=== PATIENT | female | born 1990 | race Caucasian/White ===

== ENCOUNTER 2024-10-04 08:45 | Emergency (ER) | payer MEDICAID, SELFPAY ==
[2024-10-04 08:49] VITALS: BP 130/80; PULSE 86; RESP 19; TEMP 37; O2SAT 99; BMI 65.0
--- NOTE | 2024-10-04 09:07 | XR_ITS ---
Examination: CT brain head without contrast. 2-D sagittal coronal reconstructions Date and time of exam:October 04, 2024 0914 hours Comparison July 13, 2011 INDICATIONS: Onset headaches with blurred vision today focal neurologic deficit CTDI: vol (mGy):51.6 DLP: (mGycm):1064 Technique: Multiple CT axial sections of the brain have been obtained, 5 mm slice thickness. Contrast has not been administered. 2-D sagittal, coronal reconstructions have been obtained Low dose protocols were performed. One or more of the following dose reduction techniques were used; automated exposure control, adjustment of the mA and/or KV according to patient size, use of iterative reconstruction technique. Findings: No significant ventricular enlargement. Intra-axial or extra-axial hemorrhage density is not seen. No mass effect or midline shift Basal cisterns are not remarkable. Fourth ventricle is midline. Cranial vault intact. Impression: Negative for acute hemorrhage, mass effect or midline shift As clinically warranted, if the symptoms persist, consider brain MRI follow-up
[2024-10-04 10:26] LABS: Basophils % (Auto) 0 % (0-2.5); Eosinophils # (Auto) 0.3 Thou/mm3 (0.0-0.5); Eosinophils % (Auto) 5 % (0-10); Hematocrit 40.5 % (36.0-46.0); Immature Granulocytes % (Auto) 0 % (0-0); Lymphocytes # (Auto) 1.5 Thou/mm3 (1.0-4.8); Lymphocytes % (Auto) 28 % (10-50); Mean Corpuscular HGB Conc 32.1 g/dl (31.0-37.0); Mean Corpuscular Hemoglobin 28.1 pg (25.0-35.0); Mean Corpuscular Volume 88 fL (80-100); Monocytes # (Auto) 0.4 Thou/mm3 (0.0-0.8); Monocytes % (Auto) 7 % (0-12); Neutrophils # (Auto) 3.1 Thou/mm3 (1.8-7.7); Neutrophils % (Auto) 59 % (37-80); Nucleated Red Blood Cell % 0 /100 WBC (0); Platelet Count 146 Thou/mm3 (140-440); Red Blood Count 4.63 Miln/mm3 (4.00-5.20); White Blood Count 5.2 Thou/mm3 (3.6-11.0)
[2024-10-04 10:47] LABS: Alanine Aminotransferase 40 U/L (10-49); Albumin, Serum 4.2 gm/dL (3.5-5.0); Albumin/Globulin Ratio 1.4 (1.2-2.2); Alkaline Phosphatase 98 U/L (46-116); Anion Gap 5 (7-16); Aspartate Amino Transferase 27 U/L (0-34); BUN/Creatinine Ratio 8 Ratio (12-20); Bilirubin,Total 1.6 mg/dL (0.3-1.2); Blood Urea Nitrogen < 5 mg/dL (9-23); Calcium 9.8 mg/dL (8.3-10.6); Calcium (Corrected) 9.8 mg/dL (8.5-10.1); Carbon Dioxide 25.6 mMol/L (20.0-31.0); Chloride 108 mMol/L (98-107); Creatinine (Component) 0.6 mg/dL (0.6-1.3); Estimated Creatinine Clearance 213.9 mL/min (>60); Globulin 2.9 gm/dL (2.3-3.5); Glucose 95 mg/dL (74-106); HCG,Qualitative Serum Positive; Osmolality,Calculated 274 (275-295); Potassium 3.8 mMol/L (3.4-5.1); Sodium 139 mMol/L (136-145); Total Protein 7.1 gm/dL (5.7-8.2); eGFR > 60 See Note
--- NOTE | 2024-10-04 11:20 | XR_ITS ---
Examination: OB Transvaginal ultrasound of the pelvis, complete Technique: Transvaginal sonographic images pelvis performed using wolfe scale imaging Exam date and time: October 04, 2024 1150 hours INDICATIONS: Onset pelvic pain dizziness headaches beginning yesterday FINDINGS: Uterus 14.7 x 8.5 x 8.1 cm Very poor visualization of uterus and ovaries IMPRESSION: Very poor visualization of uterus and ovaries, please see the transabdominal study.
--- NOTE | 2024-10-04 12:04 | XR_ITS ---
Examination: Complete OB ultrasound, less than 14 weeks, transabdominal Date and time of exam: October 04, 2024 1202 hours INDICATIONS: Dizziness headaches pelvic pain today Technique: Obstetrical ultrasound images less than 14 weeks performed via transabdominal imaging Findings: A normal shaped single intrauterine gestation is present in the uterus. pole 1.9 cm corresponds to 8 weeks 3 days gestational age Ultrasonographic survey of visible and placental structures unremarkable. Amniotic fluid volume appears appropriate for this estimated gestational age. Ovaries obscured by bowel gas IMPRESSION: Viable intrauterine gestation 8 weeks 3 days Cardiac motion 167 BPM.
[2024-10-04 13:18] LABS: Beta HCG,Quantitative 178442 mIU/mL (<5.0)
--- NOTE | 2024-10-04 13:37 | PD.EDHA ---
ED Headache RME/HPI General Chief Complaint: Headache Stated Complaint: headache with episodes of blurred vision per pt Time Seen by Provider: 10/04/24 08:48 Arrival date/time: 10/04/24 08:45 34-year-old female with medical history significant for obesity requiring gastric sleeve last month. Patient reports that she is concerned that she has a headache and maybe her electrolytes or something else may be off secondary to the gastric sleeve. Patient reports no fever nausea or vomiting no dizziness no weakness no chest pain or shortness of breath Limitations: no limitations Related Data Previous Rx's ?Medication ?Instructions ?Recorded albuterol sulfate 90 mcg/actuation See Rx Instructions inhalation 11/22/19 aerosol inhaler .COMPLEX PRN wheezing / cough / shortness of breath #6.7 grams benzonatate 100 mg capsule See Rx Instructions .Route 11/22/19 (Tessalon Perles) .COMPLEX cough #30 caps inhalational spacing device #1 ea 11/22/19 (Aerochamber MV spacer) ipratropium bromide 21 mcg (0.03 See Rx Instructions .Route 11/22/19 %) nasal spray .COMPLEX #30 mL prednisone 20 mg tablet See Rx Instructions PO QAM #9 tabs 11/22/19 levofloxacin 750 mg tablet 750 mg PO QDAY #5 tabs 05/31/22 Allergies Allergy/AdvReac Type Severity Reaction Status Date / Time Penicillins Allergy Intermediate THROAT Verified 10/04/24 08:45 SWELLING, TURNS RED Review of Systems Review of Systems Systems Reviewed: All systems reviewed, normal except as documented Constitutional Constitutional: Reports system reviewed and no additional complaints, except as documented, Denies fever(s) and Reports headache(s) Eyes Eyes: Reports system reviewed and no additional complaints, except as documented and Denies blurry vision ENT Ears, Nose, Mouth, and Throat: Reports system reviewed and no additional complaints, except as documented, Reports headache(s), Denies nasal congestion and Denies nasal discharge Cardiovascular Cardiovascular: Reports system reviewed and no additional complaints, except as documented, Denies chest pain and Denies dyspnea Respiratory Respiratory: Reports system reviewed and no additional complaints, except as documented, Denies chest congestion, Denies cough and Denies dyspnea Gastrointestinal Gastrointestinal: Reports system reviewed and no additional complaints, except as documented and Denies abdominal pain Integumentary/Breasts Skin/Breast: Reports system reviewed and no additional complaints, except as documented and Denies rash Neurologic Neurologic: Reports system reviewed and no additional complaints, except as documented, Reports as per HPI and Reports headache(s) Past Medical History Past Medical History CARDIAC: Positive Cellulitis; Negative Cardiac Disorders or Congestive Heart Failure RESPIRATORY: Negative Chronic Obstructive Pulmonary Disease (COPD) or Asthma GENITOURINARY: Negative Renal Disease ENDOCRINE: Negative Diabetes Mellitus Type 1 or Diabetes Mellitus Type 2 HEMATOLOGIC: Negative Sickle Cell Disease OTHER HISTORY: Negative Blood Transfusions Surgical History SURGICAL: Positive Tonsillectomy and Section Social History SMOKING STATUS: Never smoker ED Exam General Limitations: Present no limitations General appearance: Present alert and in no apparent distress Head Head exam: Present atraumatic, normocephalic and normal inspection Eye Eye exam: Present normal appearance, PERRL and EOMI; Absent conjunctival injection ENT ENT exam: Present normal exam, normal oropharynx and mucous membranes moist Neck Neck exam: Present normal inspection, full ROM and trachea midline Chest Chest inspection: Present normal inspection and symmetric chest wall rise Respiratory Respiratory exam: Present normal lung sounds bilaterally Cardiovascular Cardiovascular exam: Present regular rate, normal rhythm and normal heart sounds Abdominal Exam Abdominal exam: Present soft and normal bowel sounds Extremities Exam Extremities exam: Present normal inspection and full ROM Back Exam Back exam: Present normal inspection and full ROM Neurological Exam Neurological exam: Present alert, oriented X3, CN II-XII intact, normal gait and reflexes normal; Absent motor sensory deficit Psychiatric Psychiatric exam: Present normal affect and normal mood Skin Skin exam: Present warm, dry, intact and normal color Course Quality Measures none Orders Category Date Time Status CT head/brain wo con Stat Exams 10/04/24 09:07 Completed US OB <= 14 weeks fetus Stat Exams 10/04/24 12:04 Completed US OB transvaginal Stat Exams 10/04/24 11:20 Completed Beta HCG,Quantitative Stat Lab 10/04/24 09:50 Completed CBC Stat Lab 10/04/24 09:50 Completed CMP [Comprehensive Metabolic Panel] Stat Lab 10/04/24 09:50 Completed HCG,Qualitative Serum Stat Lab 10/04/24 09:50 Completed Vital Signs Vital signs: Vital Signs Temperature 98.6 F 10/04/24 08:49 Pulse Rate 86 10/04/24 08:49 Respiratory Rate 19 10/04/24 08:49 Blood Pressure 130/80 10/04/24 08:49 Pulse Oximetry (%) 99 10/04/24 08:49 Oxygen Delivery Method Room Air 10/04/24 08:49 O2 saturation 99% room air within normal limits Headache MDM Narrative MDM Narrative:: 34-year-old female with medical history significant for obesity requiring gastric sleeve last month. Patient reports that she is concerned that she has a headache and maybe her electrolytes or something else may be off secondary to the gastric sleeve. Patient reports no fever nausea or vomiting no dizziness no weakness no chest pain or shortness of breath Lab work obtained incidentally patient was found to be per lab work hCG quantitative level as well as ultrasound obtained Ultrasound consistent with viable 8-week 3-day with reassuring quantitative level Findings were explained to the patient patient was quite shocked by the findings Patient discharged home in no distress to follow-up with primary care doctor in the next 24 to 48 hours and for any worsening symptoms to return to the ER immediately Patient data External records reviewed:: [facility] previous records Clinical information provided by:: patient Social determinants that could affect healthcare access:: none Patient has the following chronic illnesses:: None How is presenting disease/condition affected by chronic disease/condition?: no chronic disease Evaluation data The following diagnostics were reviewed and interpreted by me:: lab results and radiology exam(s) Lab and/or radiology exams considered but not ordered:: Labs and radiology obtained Interpretation Summary: Reviewed by me Medications / Prescriptions Medications or Prescriptions considered but not ordered:: Given Medication administrations:: Given Consultations Consultation(s) initiated? (list below): No Diagnosis Differential diagnosis headache: migraine, tension headache, subarachnoid hemorrhage and other Most likely diagnosis given after review of the tests above:: Headache incidental finding Admission Indicated Admission indicated?: not indicated Admission Request Was there a request for admission?: No Disposition Plan Disposition Plan: Discharge Discharge Attestation Discharge Attestation: The patient and all family members were given an opportunity to ask questions and understood the discharge instructions. Discharge instructions specifically effects, indications for sooner follow up or return to the emergency department, and the expected course of current diagnosis. Patient condition: Stable Discharge Plan Plan Patient Disposition: HOME (Self Care) Disposition Comment: Stable Prescriptions/Referrals Prescriptions/Med Rec: No Action (DME) Aerochamber MV spacer See Dose Instructions .ROUTE .MEDSUPPLY Qty: 1 0RF Dose Instruction: As directed Rx Instructions: As directed albuterol sulfate 90 mcg/actuation HFA aerosol inhaler See Rx Instructions INH .COMPLEX PRN (Reason: wheezing / cough / shortness of breath) Qty: 6.7 0RF Rx Instructions: INH PRN; 1-2 puffs Q4-6 hours prn. administer with spacer ipratropium bromide 0.03 % spray,non-aerosol See Rx Instructions .Route .COMPLEX Qty: 30 0RF Rx Instructions: 2 sprays to each nostril q6-8 hours prn congestion; wait 30 seconds between sprays benzonatate [Tessalon Perles] 100 mg capsule See Rx Instructions .Route .COMPLEX Qty: 30 0RF Rx Instructions: 1-2 cap(s) PO Q8 hours prn cough prednisone 20 mg tablet See Rx Instructions PO QAM Qty: 9 0RF Rx Instructions: PO QAM; Take 40mg (2 tabs) PO QAM x 3 days, then 20mg (1 tab) PO QAM x 3 days levofloxacin 750 mg tablet 750 mg PO QDAY Qty: 5 0RF Rx Instructions: start on 06/01/22 Referrals: Lyndsey Sharpe FNP [Primary Care Provider] - In 1 week Problem List Clinical Impression: Headache, Incidental Patient/Caregiver Discharge Instructions Education Materials: Self-Care for Headaches Additional Instructions: Please follow-up with [facility] as soon as possible for worsening symptoms return immediately Print Language: Samoan Stand Alone Forms: Radha Award Info., Patient Portal Info Letter Attestation Attestation The patient was seen by the midlevel practitioner. I, the co-signing physician, was present during the entire ER visit. While I did not physically examine the patient, I was available for consultation as needed.
== END 2024-10-04 13:40 | disposition home or self-care (01) ==
PROVIDERS: Nurse Practitioner Primary Care; Emergency Provider Emergency Medicine; PCP Nurse Practitioner
DX: R51.9 Headache, unspecified (principal); Z33.1 Pregnant state, incidental
CPT/HCPCS: 36415; 70450; 76801; 76817; 80053; 84702; 84703; 85025; 99284

== ENCOUNTER 2024-11-08 15:03 | Emergency (ER) | payer MEDICAID, SELFPAY ==
[2024-11-08 15:31] VITALS: BP 114/77; PULSE 86; RESP 18; TEMP 36.9; O2SAT 95; BMI 60.2
--- NOTE | 2024-11-08 16:07 | PD.EDADULT ---
ED General RME/HPI General Chief complaint: General Adult/Misc Complain Stated complaint: LOW B/P, + Time Seen by Provider: 11/08/24 15:05 Arrival date/time: 11/08/24 15:03 34-year-old female presents to the emergency department today complains of cough, congestion, runny nose and bodyaches patient reports being approximately 14 weeks Limitations: no limitations Related Data Previous Rx's ?Medication ?Instructions ?Recorded albuterol sulfate 90 mcg/actuation See Rx Instructions inhalation 11/22/19 aerosol inhaler .COMPLEX PRN wheezing / cough / shortness of breath #6.7 grams benzonatate 100 mg capsule See Rx Instructions .Route 11/22/19 (Tessalon Perles) .COMPLEX cough #30 caps inhalational spacing device #1 ea 11/22/19 (Aerochamber MV spacer) ipratropium bromide 21 mcg (0.03 See Rx Instructions .Route 11/22/19 %) nasal spray .COMPLEX #30 mL prednisone 20 mg tablet See Rx Instructions PO QAM #9 tabs 11/22/19 levofloxacin 750 mg tablet 750 mg PO QDAY #5 tabs 05/31/22 acetaminophen 500 mg capsule 1,000 mg (2 x 500 mg) PO Q8HR PRN 11/08/24 pain #30 caps fluticasone propionate 50 2 spray intranasal QDAY PRN 11/08/24 mcg/actuation nasal allergy symptoms #16 grams spray,suspension (Flonase Allergy Relief) Allergies Allergy/AdvReac Type Severity Reaction Status Date / Time Penicillins Allergy Severe THROAT Verified 11/08/24 15:07 SWELLING, TURNS RED Review of Systems Review of Systems Systems Reviewed: All systems reviewed, normal except as documented Constitutional Constitutional: Reports system reviewed and no additional complaints, except as documented, Denies fever(s) and Denies headache(s) Eyes Eyes: Reports system reviewed and no additional complaints, except as documented and Denies blurry vision ENT Ears, Nose, Mouth, and Throat: Reports system reviewed and no additional complaints, except as documented, Denies headache(s), Reports nasal congestion and Reports nasal discharge Cardiovascular Cardiovascular: Reports system reviewed and no additional complaints, except as documented, Denies chest pain and Denies dyspnea Respiratory Respiratory: Reports system reviewed and no additional complaints, except as documented, Reports chest congestion, Reports cough and Denies dyspnea Gastrointestinal Gastrointestinal: Reports system reviewed and no additional complaints, except as documented and Denies abdominal pain Integumentary/Breasts Skin/Breast: Reports system reviewed and no additional complaints, except as documented and Denies rash Neurologic Neurologic: Reports system reviewed and no additional complaints, except as documented, Reports as per HPI and Denies headache(s) Past Medical History Past Medical History CARDIAC: Positive Cellulitis; Negative Cardiac Disorders or Congestive Heart Failure RESPIRATORY: Negative Chronic Obstructive Pulmonary Disease (COPD) or Asthma GENITOURINARY: Negative Renal Disease ENDOCRINE: Negative Diabetes Mellitus Type 1 or Diabetes Mellitus Type 2 HEMATOLOGIC: Negative Sickle Cell Disease OTHER HISTORY: Negative Blood Transfusions Surgical History SURGICAL: Positive Tonsillectomy and Section Social History SMOKING STATUS: Never smoker ED Exam General Limitations: Present no limitations General appearance: Present alert and in no apparent distress Head Head exam: Present atraumatic, normocephalic and normal inspection Eye Eye exam: Present normal appearance, PERRL and EOMI; Absent conjunctival injection ENT ENT exam: Present normal exam, normal oropharynx and mucous membranes moist Neck Neck exam: Present normal inspection, full ROM and trachea midline Chest Chest inspection: Present normal inspection and symmetric chest wall rise; Absent tenderness Respiratory Respiratory exam: Present normal lung sounds bilaterally; Absent respiratory distress, wheezes, stridor or accessory muscle use Cardiovascular Cardiovascular exam: Present regular rate, normal rhythm and normal heart sounds Abdominal Exam Abdominal exam: Present soft and normal bowel sounds; Absent distention, tenderness, guarding, rebound or rigidity Extremities Exam Extremities exam: Present normal inspection and full ROM Back Exam Back exam: Present normal inspection and full ROM Neurological Exam Neurological exam: Present alert, oriented X3 and CN II-XII intact Psychiatric Psychiatric exam: Present normal affect and normal mood Skin Skin exam: Present warm, dry, intact and normal color Course Quality Measures none Orders Category Date Time Status Bedside COVID-19 Antigen Test NOW Care 11/08/24 15:36 Active Bedside Influenza A&B Antigen Test NOW Care 11/08/24 15:36 Completed Vital Signs Vital signs: Vital Signs Temperature 98.5 F 11/08/24 15:31 Pulse Rate 86 11/08/24 15:31 Respiratory Rate 18 11/08/24 15:31 Blood Pressure 114/77 11/08/24 15:31 Pulse Oximetry (%) 95 11/08/24 15:31 Oxygen Delivery Method Room Air 11/08/24 15:31 O2 saturation 95% room air within normal MDM Patient data External records reviewed:: [facility] previous records Clinical information provided by:: patient Social determinants that could affect healthcare access:: none Patient has the following chronic illnesses:: She history How is presenting disease/condition affected by chronic disease/condition?: uneffected by Evaluation data The following diagnostics were reviewed and interpreted by me:: lab results Lab and/or radiology exams considered but not ordered:: Labs obtained Interpretation Summary: Reviewed by me Medications Medications considered but not ordered:: Given Medication administrations:: Given Consultations Consultation(s) initiated? (list below): No Diagnosis Differential Diagnosis ED Complaint MDM: URI, viral illness, COVID-19, pneumonia Most likely diagnosis given after review of the tests above:: Viral illness Admission Indicated Admission indicated?: not indicated Explain why admission is indicated or not indicated:: No criteria Admission Request Was there a request for admission?: No Disposition Plan Disposition Plan: Discharge Discharge Attestation Discharge Attestation: The patient and all family members were given an opportunity to ask questions and understood the discharge instructions. Discharge instructions specifically effects, indications for sooner follow up or return to the emergency department, and the expected course of current diagnosis. Patient condition: Stable Medical Decision Making MDM Narrative MDM Narrative: 34-year-old female presents to the emergency department today complains of cough, congestion, runny nose and bodyaches patient reports being approximately 14 weeks On exam patient does not appear ill or toxic patient's not appear in acute distress Patient checked for flu and COVID both of which are negative Patient ports that she has had no fevers Patient reports her primary complaint is a runny nose and congestion Patient discharged home in no distress to follow-up with primary care doctor in the next 24 to 48 hours and for any worsening symptoms to return to the ER immediately Differential Diagnosis Differential Diagnosis: URI, viral illness, COVID-19, pneumonia Medical Records Medical records reviewed: Yes I reviewed the patient's medical records. Lab Data Lab results reviewed: Yes I reviewed the patient's lab results. Discharge Plan Plan Patient Disposition: HOME (Self Care) Disposition Comment: Stable Prescriptions/Referrals Prescriptions/Med Rec: New acetaminophen 500 mg capsule 1,000 mg PO Q8HR PRN (Reason: pain) Qty: 30 0RF fluticasone propionate [Flonase Allergy Relief] 50 mcg/actuation spray,suspension 2 spray INTRANASAL QDAY PRN (Reason: allergy symptoms) Qty: 16 0RF Rx Instructions: administer into each nostril No Action (DME) Aerochamber MV spacer See Dose Instructions .ROUTE .MEDSUPPLY Qty: 1 0RF Dose Instruction: As directed Rx Instructions: As directed albuterol sulfate 90 mcg/actuation HFA aerosol inhaler See Rx Instructions INH .COMPLEX PRN (Reason: wheezing / cough / shortness of breath) Qty: 6.7 0RF Rx Instructions: INH PRN; 1-2 puffs Q4-6 hours prn. administer with spacer ipratropium bromide 0.03 % spray,non-aerosol See Rx Instructions .Route .COMPLEX Qty: 30 0RF Rx Instructions: 2 sprays to each nostril q6-8 hours prn congestion; wait 30 seconds between sprays benzonatate [Tessalon Perles] 100 mg capsule See Rx Instructions .Route .COMPLEX Qty: 30 0RF Rx Instructions: 1-2 cap(s) PO Q8 hours prn cough prednisone 20 mg tablet See Rx Instructions PO QAM Qty: 9 0RF Rx Instructions: PO QAM; Take 40mg (2 tabs) PO QAM x 3 days, then 20mg (1 tab) PO QAM x 3 days levofloxacin 750 mg tablet 750 mg PO QDAY Qty: 5 0RF Rx Instructions: start on 06/01/22 Problem List Clinical Impression: URI (upper respiratory infection) Patient/Caregiver Discharge Instructions Education Materials: ED URI, Viral, No Abx (Adult) Additional Instructions: Please follow up with your primary care doctor in the next 24-48hrs for any worsening symptoms return here immediately Print Language: Namibian Stand Alone Forms: Radha Award Info., Patient Portal Info Letter PA/[employer]ADI[employer] CONVERTER UTILITY OPERATOR Supervising Physician PA/BUTADIENE CONVERTER UTILITY OPERATOR Supervising Physician: Dr Turner
== END 2024-11-08 16:12 | disposition home or self-care (01) ==
LOC: SERX 16:29
PROVIDERS: Emergency Provider Emergency Medicine
DX: O99.512 Diseases of the respiratory system complicating pregnancy, second trimester (principal); J06.9 Acute upper respiratory infection, unspecified; Z3A.14 14 weeks gestation of pregnancy
CPT/HCPCS: 87400; 87811; 99283

== ENCOUNTER 2024-11-27 23:46 | Emergency (ER) | payer MEDICAID, SELFPAY ==
[2024-11-27 23:46] VITALS: BMI 60.2
[2024-11-28 00:11] VITALS: BP 135/89; PULSE 77; RESP 16; TEMP 37; O2SAT 99
--- NOTE | 2024-11-28 00:13 | EDNOTE_ITS ---
Lower Extremity Injury RME/HPI General Chief Complaint: Extremity Injury, Lower Stated Complaint: LT KNEE PAIN Time Seen by Provider: 11/27/24 23:50 Source: patient, RN notes reviewed and old records reviewed Arrival date/time: 11/27/24 23:46 Mode of arrival: wheelchair Limitations: no limitations RME / HPI RME / HPI Narrative: 34yof presents to ED for left knee pain x2 days. No preceding injury or fall. Patient reports mild swelling, no rash or redness. No numbness/tingling reported. Patient has taken tylenol with some relief. Related Data Previous Rx's ?Medication ?Instructions ?Recorded albuterol sulfate 90 mcg/actuation See Rx Instructions inhalation 11/22/19 aerosol inhaler .COMPLEX PRN wheezing / cough / shortness of breath #6.7 grams benzonatate 100 mg capsule See Rx Instructions .Route 11/22/19 (Tessalon Perles) .COMPLEX cough #30 caps inhalational spacing device #1 ea 11/22/19 (Aerochamber MV spacer) ipratropium bromide 21 mcg (0.03 See Rx Instructions .Route 11/22/19 %) nasal spray .COMPLEX #30 mL prednisone 20 mg tablet See Rx Instructions PO QAM #9 tabs 11/22/19 levofloxacin 750 mg tablet 750 mg PO QDAY #5 tabs 05/31/22 acetaminophen 500 mg capsule 1,000 mg (2 x 500 mg) PO Q8HR PRN 11/08/24 pain #30 caps fluticasone propionate 50 2 spray intranasal QDAY PRN 11/08/24 mcg/actuation nasal allergy symptoms #16 grams spray,suspension (Flonase Allergy Relief) acetaminophen 650 mg 650 mg PO Q8H PRN pain #30 tabs 11/28/24 tablet,extended release (Tylenol 8 Hour) diclofenac sodium 1 % topical gel 2 g topical QID PRN pain #100 grams 11/28/24 (Voltaren Arthritis Pain) lidocaine 5 % topical patch 1 patch topical QDAY #15 ea 11/28/24 Allergies Allergy/AdvReac Type Severity Reaction Status Date / Time Penicillins Allergy Severe THROAT Verified 11/08/24 15:07 SWELLING, TURNS RED Review of Systems Musculoskeletal Musculoskeletal: Reports arthralgias, Denies deformity, Reports joint swelling, Denies limited range of motion, Denies numbness and Denies tingling Neurologic Neurologic: Denies numbness and Denies tingling Past Medical History Past Medical History GASTROINTESTINAL: Positive Obesity Surgical History SURGICAL: Positive Section OTHER SURGICAL HX: Gastric sleeve Social History SMOKING STATUS: Never smoker SUBSTANCE USE: does not use ALCOHOL: Never ED Exam General Limitations: Present no limitations General appearance: Present alert, in no apparent distress and other (Morbidly obese) Head Head exam: Present atraumatic and normocephalic Eye Eye exam: Present normal appearance, PERRL and EOMI ENT ENT exam: Present normal exam and mucous membranes moist Neck Neck exam: Present normal inspection and full ROM Chest Chest inspection: Present normal inspection and symmetric chest wall rise Respiratory Respiratory exam: Present normal lung sounds bilaterally; Absent respiratory distress Cardiovascular Cardiovascular exam: Present regular rate and normal rhythm Extremities Exam Extremities exam: Present other (Mild tenderness/swelling to left anterior knee. FROM. DP pulses and sensation intact) Neurological Exam Neurological exam: Present alert and oriented X3 Psychiatric Psychiatric exam: Present normal affect and normal mood Skin Skin exam: Present warm, dry, intact and normal color Course Quality Measures none Orders Category Date Time Status murray wrap [Splint / Immobilizer] STAT Care 11/28/24 01:01 Completed XR knee LT 3V Stat Exams 11/28/24 00:17 Completed Vital Signs Vital signs: Vital Signs Temperature 98.6 F 11/28/24 00:11 Pulse Rate 77 11/28/24 00:11 Respiratory Rate 16 11/28/24 00:11 Blood Pressure 135/89 H 11/28/24 00:11 Pulse Oximetry (%) 99 11/28/24 00:11 Oxygen Delivery Method Room Air 11/28/24 00:11 Extremity Injury, Lower MDM Narrative MDM Narrative:: 34yof presents to ED for left knee pain x2 days. No preceding injury or fall. Patient reports mild swelling, no rash or redness. No numbness/tingling reported. Patient has taken tylenol with some relief. No evidence of fracture. Patient is neurovascularly intact. Encouraged RICE therapy, tylenol prn pain. Murray wrap applied to left knee in ED. Offered crutches, patient declined and stated she has a cane to use. Ortho referral given for follow up as needed. Stable for dc, RTED precautions given. Patient data External records reviewed:: [facility] previous records (11/08/2024 ED visit for URI) Clinical information provided by:: patient Social determinants that could affect healthcare access:: other (specify) (poor access to healthcare) Patient has the following chronic illnesses:: Morbid obesity How is presenting disease/condition affected by chronic disease/condition?: exacerbated by Evaluation data The following diagnostics were reviewed and interpreted by me:: radiology exam(s) Lab and/or radiology exams considered but not ordered:: None Interpretation Summary: Knee x-rays: No fracture per my read, +osteoarthritic changes Medications / Prescriptions Medications or Prescriptions considered but not ordered:: None Medication administrations:: None Consultations Consultation(s) initiated? (list below): No Diagnosis Extremity Injury, Lower Differential Diagnosis: other (Fracture, dislocation, sprain, strain, contusion, MSK pain) Most likely diagnosis given after review of the tests above:: Left knee pain Admission Indicated Admission indicated?: not indicated Admission Request Was there a request for admission?: No Disposition Plan Disposition Plan: Discharge Discharge Attestation Discharge Attestation: The patient and all family members were given an opportunity to ask questions and understood the discharge instructions. Discharge instructions specifically effects, indications for sooner follow up or return to the emergency department, and the expected course of current diagnosis. Patient condition: Stable Discharge Plan Plan Patient Disposition: HOME (Self Care) Patient condition on transfer: Stable Prescriptions/Referrals Prescriptions/Med Rec: New acetaminophen [Tylenol 8 Hour] 650 mg tablet extended release 650 mg PO Q8H PRN (Reason: pain) Qty: 30 0RF lidocaine 5 % adhesive patch,medicated 1 patch topical QDAY Qty: 15 0RF Rx Instructions: leave on most painful area for up to 12 hrs diclofenac sodium [Voltaren Arthritis Pain] 1 % gel 2 g topical QID PRN (Reason: pain) Qty: 100 0RF Rx Instructions: apply to single elbow, wrist or hand; for hand includes palm/fingers/back of hand No Action (DME) Aerochamber MV spacer See Dose Instructions .ROUTE .MEDSUPPLY Qty: 1 0RF Dose Instruction: As directed Rx Instructions: As directed albuterol sulfate 90 mcg/actuation HFA aerosol inhaler See Rx Instructions INH .COMPLEX PRN (Reason: wheezing / cough / shortness of breath) Qty: 6.7 0RF Rx Instructions: INH PRN; 1-2 puffs Q4-6 hours prn. administer with spacer ipratropium bromide 0.03 % spray,non-aerosol See Rx Instructions .Route .COMPLEX Qty: 30 0RF Rx Instructions: 2 sprays to each nostril q6-8 hours prn congestion; wait 30 seconds between sprays benzonatate [Tessalon Perles] 100 mg capsule See Rx Instructions .Route .COMPLEX Qty: 30 0RF Rx Instructions: 1-2 cap(s) PO Q8 hours prn cough prednisone 20 mg tablet See Rx Instructions PO QAM Qty: 9 0RF Rx Instructions: PO QAM; Take 40mg (2 tabs) PO QAM x 3 days, then 20mg (1 tab) PO QAM x 3 days levofloxacin 750 mg tablet 750 mg PO QDAY Qty: 5 0RF Rx Instructions: start on 06/01/22 acetaminophen 500 mg capsule 1,000 mg PO Q8HR PRN (Reason: pain) Qty: 30 0RF fluticasone propionate [Flonase Allergy Relief] 50 mcg/actuation spray,suspension 2 spray INTRANASAL QDAY PRN (Reason: allergy symptoms) Qty: 16 0RF Rx Instructions: administer into each nostril Referrals: Temporary Provider,ED [Physician] - In 1 week Problem List Clinical Impression: Knee pain, left, Osteoarthritis Patient/Caregiver Discharge Instructions Education Materials: Knee Pain, ED Osteoarthritis Print Language: [place] Stand Alone Forms: Radha Award Info., Patient Portal Info Letter PA/SHEET ROCKER Supervising Physician PA/SHEET ROCKER Supervising Physician: Dragan
--- NOTE | 2024-11-28 00:17 | XR_ITS ---
Examination: Knee, left , 3 views Technique: Knee AP, lateral, oblique 3 views Date and time of exam: November 28, 2024 0019 hrs. Indications: Onset left knee pain beginning 2 days ago, no injury Findings: Moderate to advanced tricompartment osteoarthritis, significant narrowing medial patellofemoral joint Moderate knee effusion No fracture Impression: Moderate to advanced tricompartment osteoarthritis
== END 2024-11-28 01:25 | disposition home or self-care (01) ==
PROVIDERS: Emergency Provider Emergency Medicine; PCP Family Medicine; Referring Provider Emergency Medicine
DX: M17.12 Unilateral primary osteoarthritis, left knee (principal)
CPT/HCPCS: 73562; 99283

== ENCOUNTER 2025-02-08 15:30 | Emergency (ER) | payer MEDICAID, SELFPAY ==
[2025-02-08 16:23] VITALS: BP 98/50; PULSE 71; RESP 18; TEMP 36.7; O2SAT 97; BMI 57.9
--- NOTE | 2025-02-08 16:36 | PD.EDRME ---
Rapid Medical Screening Exam RME Arrival date/time: 02/08/25 15:30 Chief Complaint: Dizziness Time Seen by Provider: 02/08/25 16:23 Vital signs: Vital Signs Temperature 98.1 F 02/08/25 16:23 Pulse Rate 71 02/08/25 16:23 Respiratory Rate 18 02/08/25 16:23 Blood Pressure 98/50 L 02/08/25 16:23 Pulse Oximetry (%) 97 02/08/25 16:23 Oxygen Delivery Method Room Air 02/08/25 16:23 RME Narrative: Lightheadedness, feeling faint and headache since this morning. Patient is 27 weeks OB. Denies pelvic pain or vaginal bleeding.
[2025-02-08 16:58] LABS: Basophils % (Auto) 0 % (0-2.5); Eosinophils # (Auto) 0.1 Thou/mm3 (0.0-0.5); Eosinophils % (Auto) 1 % (0-10); Hematocrit 32.8 % (36.0-46.0); Hemoglobin 10.8 g/dL (12.0-16.0); Immature Granulocytes % (Auto) 0 % (0-0); Immature Granulocytes Auto 0.02 Thou/mm3 (0.00-0.00); Lymphocytes # (Auto) 1.3 Thou/mm3 (1.0-4.8); Lymphocytes % (Auto) 18 % (10-50); Mean Corpuscular HGB Conc 32.9 g/dl (31.0-37.0); Mean Corpuscular Hemoglobin 31.7 pg (25.0-35.0); Mean Corpuscular Volume 96 fL (80-100); Monocytes # (Auto) 0.3 Thou/mm3 (0.0-0.8); Monocytes % (Auto) 5 % (0-12); Neutrophils # (Auto) 5.3 Thou/mm3 (1.8-7.7); Neutrophils % (Auto) 75 % (37-80); Nucleated Red Blood Cell % 0 /100 WBC (0); Platelet Count 162 Thou/mm3 (140-440); Red Blood Count 3.41 Miln/mm3 (4.00-5.20)
[2025-02-08 17:18] LABS: Alanine Aminotransferase < 7 U/L (10-49); Albumin, Serum 3.6 gm/dL (3.5-5.0); Albumin/Globulin Ratio 1.2 (1.2-2.2); Alkaline Phosphatase 91 U/L (46-116); Anion Gap 9 (7-16); Aspartate Amino Transferase 12 U/L (0-34); BUN/Creatinine Ratio 10 Ratio (12-20); Blood Urea Nitrogen 5 mg/dL (9-23); Calcium 9.3 mg/dL (8.3-10.6); Calcium (Corrected) 9.6 mg/dL (8.5-10.1); Carbon Dioxide 22.2 mMol/L (20.0-31.0); Chloride 107 mMol/L (98-107); Creatinine (Component) 0.5 mg/dL (0.6-1.3); Estimated Creatinine Clearance 245.9 mL/min (>60); Globulin 2.9 gm/dL (2.3-3.5); Glucose 98 mg/dL (74-106); Osmolality,Calculated 272 (275-295); Potassium 4.2 mMol/L (3.4-5.1); Sodium 138 mMol/L (136-145); Total Protein 6.5 gm/dL (5.7-8.2); Troponin I < 0.002 ng/mL (0.0-0.045); eGFR > 60 See Note
[2025-02-08 18:04] LABS: Collection Type, Urine Clean Catch
[2025-02-08 18:12] LABS: Bacteria,Urine 2+; Bilirubin,Urine Negative (Negative); Blood,Urine Negative (Negative); Clarity,Urine Turbid (Clear/Hazy); Color,Urine Yellow (Lt Yel-Yel); Glucose, Urine Negative (Negative); Hyaline Casts,Urine < 1 /hpf (0-1); Ketones,Urine 2+ (Negative); Leukocyte Esterase,Urine Positive (Negative); Nitrite,Urine Positive (Negative); PH,Urine 6.5 (5.0-7.0); Protein,Urine 1+ (Neg - Trace); RBC,Urine 11 /hpf (0-3); Specific Gravity,Urine 1.024 (1.001-1.035); Squamous Epithelial Cell,Urine 6 /hpf (0-5); WBC,Urine 82 /hpf (0-5)
--- NOTE | 2025-02-08 20:21 | PD.EDADDENDU ---
Emergency Room Addendum Addendum Narrative: Patient presents with headache and dizziness and lower leg edema. She is currently , [place] ~27 weeks. No contractions. No bleeding. No other complaints. Blood and urine tests remarkable for UTI and proteinuria. Medically cleared for more evaluation in our allergy department. Cefdinir prescription sent to her pharmacy for UTI. Discharge instructions from Dr. Lilly: 1. You are medically cleared in the emergency room for further care in our L&D, including for preeclampsia.
== END 2025-02-08 20:29 | disposition home or self-care (01) ==
PROVIDERS: Physician Assistant; Emergency Provider Emergency Medicine
DX: O23.42 Unspecified infection of urinary tract in pregnancy, second trimester (principal); N39.0 Urinary tract infection, site not specified; Z3A.27 27 weeks gestation of pregnancy
CPT/HCPCS: 36415; 80053; 81001; 84484; 85025; 99283

== ENCOUNTER 2025-02-08 20:32 | Observation (INO) | payer MEDICAID, SELFPAY ==
[2025-02-08] VITALS (11 sets, daily range): BP systolic 109; BP diastolic 64; PULSE 64–82; RESP 19–99; TEMP 36.8; O2SAT 91–98; BMI 56.4
== END 2025-02-08 21:28 | disposition home or self-care (01) ==
PROVIDERS: Admitting Provider Obstetrics & Gynecology; Visit Provider Obstetrics & Gynecology
DX: Z34.82 Encounter for supervision of other normal pregnancy, second trimester (principal); Z3A.27 27 weeks gestation of pregnancy
CPT/HCPCS: 59025; 59899; G0378